=== PATIENT | female | born 1970 | race Caucasian/White ===

== ENCOUNTER 2022-09-01 02:05 | Day surgery (SDC) | payer OTHER, SELFPAY ==
[2022-08-22 10:56] VITALS: BMI 25.4
[2022-09-01 06:48] VITALS: BP 109/80; PULSE 80; RESP 18; O2SAT 100; BMI 25.1
[2022-09-01] MEDS: LACTATED RINGERS 1,000 ML 150 ML IV CONT (07:01)
--- NOTE | 2022-09-01 07:19 | WPDANESEPPF ---
Anes - Initial Pre Proc Eval Procedure: Operation Date: 09/01/22 08:00 Proposed Procedures p Screening Colonoscopy - Phillip Martinez MD Date/Time: 09/01/22 07:19 Surgeon: Phillip Martinez MD Pre Op Diagnosis: neoplasm screening Patient Data Age: 51 Gender: F Height: 1.52 m Weight: 58.3 kg Last Vital Signs Pulse 80 09/01/22 06:48 Resp 18 09/01/22 06:48 BP 109/80 09/01/22 06:48 Pulse Ox 100 09/01/22 06:48 O2 Del Method Room Air 09/01/22 06:48 Allergies Allergy/AdvReac Type Severity Reaction Status Date / Time No Known Allergies Allergy Mild Verified 09/01/22 06:46 Home Medications Medication Instructions Recorded Confirmed Type cholecalciferol (vitamin D3) 50 50 mcg PO DAILY 06/29/22 08/22/22 History mcg (2,000 unit) capsule cetirizine 10 mg tablet (Zyrtec) 10 mg PO DAILY PRN Allergic 06/30/22 08/22/22 History Symptoms sodium,potassium,mag sulfates 17.5 See Rx Instructions PO .COMPLEX 07/12/22 08/22/22 Rx gram-3.13 gram-1.6 gram oral soln #354 mL (Suprep Bowel Prep Kit) Patient hx anesthesia problems: none Family hx anesthesia problems: none Results Review: All pre-operative results and documents have been reviewed as part of the pre-operative evaluation. [facility] Past Medical History Medical History (Updated 06/30/22 @ 09:44 by Emily Mcgee PA-C) Screening mammogram, encounter for Vitamin B12 deficiency Surgical History Surgical History History of 1996 primary c/s--failure to progress 1998 rpt c/s History of hysteroscopy 08/20/02 hscope d&c/endo ablation/dx lscope/tubal ligation 11/11/03 hscope d&c--menometrorrhagia/dysmenorrhea History of total abdominal hysterectomy 12/04/03 HI--adhesiolysis History of tubal ligation 08/20/02 tubal ligation/dx lscope/hscope d&c/endo ablation History of unilateral salpingectomy 02/16/98 dx lscope w/ lt salpingectomy Family History Family History (Updated 11/21/21 @ 09:13 by Jayna Brown [facility]) Grandparent Acute myocardial infarction maternal grandparents Mother Hypertension Social History Social History (Updated 06/30/22 @ 09:06 by Antonella Mcgrath) Smoking status: Never smoker Alcohol intake: current Alcohol use details: ONCE A MONTH Substance use: never Substance use type: does not use Living arrangements: with family Additional living arrangements comments: spouse 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 Gender identity (if verbalized by the patient): Female Sexual Orientation (if Verbalized by the Patient): Straight or Heterosexual Spiritual care concerns: No Anes - Eval Final PreProcedure Day of Procedure 09/01/22 07:19 Patient weight: normal Heart: regular rate and rhythm Lungs: clear to auscultation Airway: Mallampati scale class II Neurological: alert and oriented Last oral intake: >/= 8 hours ASA classification: I Emergent: no Anesthetic plan: proceed Anesthesia type and monitoring: general GIVS and standard monitoring Results Review: All pre-operative results and documents have been reviewed as part of the pre-operative evaluation. Informed Consent: The patient's anesthetic plan and its attendant risks and benefits were discussed with the patient/family/POA. Questions were solicited and answers provided to the satisfaction of the patient/family/POA.
--- NOTE | 2022-09-01 07:33 | PM.HPGS ---
History of Present Illness History of Present Illness Consent: Risks, benefits, and alternatives have been discussed and questions answered. Patient agrees to proceed with procedure. Chief complaint: neoplasm screening Narrative: Domitila Villarreal is a 51 year old female Presents for screening colonoscopy. Patient's current weight appetite and bowel movements are normal. She denies abdominal pain. She has had no bleeding. Family history is noncontributory. Patient presents today for neoplasia screening. Review of Systems Review of Systems: Review of systems noncontributory. [facility] Past Medical History Medical History (Updated 09/01/22 @ 07:34 by Phillip Martinez MD) Screening mammogram, encounter for Vitamin B12 deficiency Surgical History Surgical History History of 1996 primary c/s--failure to progress 1998 rpt c/s History of hysteroscopy 08/20/02 hscope d&c/endo ablation/dx lscope/tubal ligation 11/11/03 hscope d&c--menometrorrhagia/dysmenorrhea History of total abdominal hysterectomy 12/04/03 HI--adhesiolysis History of tubal ligation 08/20/02 tubal ligation/dx lscope/hscope d&c/endo ablation History of unilateral salpingectomy 02/16/98 dx lscope w/ lt salpingectomy Family History Family History (Updated 11/21/21 @ 09:13 by Jayna Brown [facility]) Grandparent Acute myocardial infarction maternal grandparents Mother Hypertension Social History Social History (Updated 06/30/22 @ 09:06 by Antonella Mcgrath) Smoking status: Never smoker Alcohol intake: current Alcohol use details: ONCE A MONTH Substance use: never Substance use type: does not use Living arrangements: with family Additional living arrangements comments: spouse 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 Gender identity (if verbalized by the patient): Female Sexual Orientation (if Verbalized by the Patient): Straight or Heterosexual Spiritual care concerns: No Meds Home Medications and Allergies Home Medications Medication Instructions Recorded Confirmed Type cholecalciferol (vitamin D3) 50 50 mcg PO DAILY 06/29/22 08/22/22 History mcg (2,000 unit) capsule cetirizine 10 mg tablet (Zyrtec) 10 mg PO DAILY PRN Allergic 06/30/22 08/22/22 History Symptoms sodium,potassium,mag sulfates 17.5 See Rx Instructions PO .COMPLEX 07/12/22 08/22/22 Rx gram-3.13 gram-1.6 gram oral soln #354 mL (Suprep Bowel Prep Kit) Allergies Allergy/AdvReac Type Severity Reaction Status Date / Time No Known Allergies Allergy Mild Verified 09/01/22 06:46 Vital Signs Vital Signs - 24 hr 09/01/22 06:48 Pulse Rate 80 Respiratory Rate 18 Blood Pressure 109/80 Pulse Oximetry 100 Oxygen Delivery Room Air Exam Narrative: Physical exam reveals patient be alert. Vital signs stable. HEENT exam is unremarkable. Patient has anicteric. Lungs are clear to auscultation and percussion. Heart is without murmur or extra sounds. Abdomen bowel sounds are present soft nontender with no organomegaly. Digital external rectal exam is normal. Assessment and Plan Assessment and plan (1) Encounter for screening colonoscopy: Code(s): Z12.11 - Encounter for screening for malignant neoplasm of colon Status: Acute Assessment and Plan: Patient presents today for neoplasia screening colonoscopy. Appears to be at average risk for colon polyps. Further recommendations may be given after endoscopy.
[2022-09-01 08:38] VITALS: BP 94/62; PULSE 74; RESP 14; O2SAT 100
[2022-09-01 08:48] VITALS: BP 96/62; PULSE 76; RESP 14; O2SAT 100
[2022-09-01 08:58] VITALS: BP 110/53; PULSE 72; RESP 18; O2SAT 100
== END 2022-09-01 09:13 | disposition home or self-care (01) ==
PROVIDERS: PCP Physician Assistant Medical; Visit Provider Internal Medicine Gastroenterology
PROC: 0DJD8ZZ Inspection of Lower Intestinal Tract, Via Natural or Artificial Opening Endoscopic (ICD-10-PCS; CPT 45378; principal; 2022-09-01 08:00)
DX: Z12.11 Encounter for screening for malignant neoplasm of colon (principal); K64.8 Other hemorrhoids
CPT/HCPCS: 45378; J2704; J7120

== ENCOUNTER → 2023-08-30 10:48 | Outpatient (CLI) | payer OTHER, SELFPAY ==
--- NOTE | ~2023-08-30 | MR_ITS ---
EXAMINATION: MR knee LT wo con DATE: 08/30/2023 11:16 INDICATION: Medial left knee pain and limited range of motion post fall 5 weeks prior TECHNIQUE: Magnetic resonance imaging (MRI) of the left knee was performed without intravenous contra st. Sequences included coronal PD-weighted FSE, coronal PD-weighted FS FSE, sagittal T2-weighted FSE , sagittal PD-weighted FS FSE and axial PD weighted fat saturated FSE. COMPARISON: None. FINDINGS: Medial compartment: Medial meniscus is normal. Articular cartilage is normal. Lateral compartment: Lateral meniscus is normal. There is marrow edema surrounding a subtle linear low signal intensity vela barticular impaction fracture at the lateral side of the posterior weightbearing lateral femoral cond yle. There is minimal depression and flattening of a small portion of the overlying articular cortex. Articular cartilage is normal. Patellofemoral compartment: Small region of deep chondral fissuring with underlying subarticular edema-like signal change at the inferomedial aspect of the medial trochlea. Remaining cartilage in the patellofemoral compartment is normal. Ligaments and tendons: Anterior and posterior cruciate ligaments are normal. There is mild thickening and mild increased sig nal along the anterior margin of the proximal medial collateral ligament with mild surrounding soft t issue edema consistent with subacute moderate grade sprain/partial tear. The fibular collateral ligam ent complex is normal. The extensor mechanism is normal. The visualized medial and lateral hamstring tendons as well as the iliotibial band are normal. Fluid: Physiologic amount of fluid in the joint space. No loose osteochondral bodies identified. Osseous/other: Normal marrow signal aside from the previous noted edema such with the impaction fracture at the post erior weightbearing lateral femoral condyle. No other fracture or pathologic marrow replacing process . IMPRESSION: 1. Likely subacute partial tear/moderate grade sprain of the medial collateral ligament. 2. Nondisplaced impaction fracture at the lateral side of the posterior weightbearing lateral femoral condyle without evident overlying chondral injury. 3. Mild patellofemoral osteoarthritis with small region of high-grade chondromalacia at the inferomed ial aspect of the medial trochlea. Reviewed, dictated and finalized at location A. [employer] IMPRESSION: 1. Likely subacute partial tear/moderate grade sprain of the medial collateral ligament. 2. Nondisplaced impaction fracture at the lateral side of the posterior weightb earing lateral femoral condyle without evident overlying chondral injury. 3. Mild patellofemoral osteoarthritis with small region of high-grade chondroma lacia at the inferomedial aspect of the medial trochlea.
== END ==
PROVIDERS: PCP Nurse Practitioner Family; Visit Provider Nurse Practitioner Family
DX: M17.12 Unilateral primary osteoarthritis, left knee (principal); S72.425A Nondisplaced fracture of lateral condyle of left femur, initial encounter for closed fracture; X58.XXXA Exposure to other specified factors, initial encounter
CPT/HCPCS: 73721